=== PATIENT | male | born 1965 | race Caucasian/White ===

== ENCOUNTER 2017-12-30 03:50 | Observation (INO) | payer OTHER, BC ==
[2017-12-30] MEDS ORDERED: Acetaminophen 650 MG Supp RECTAL ONE (04:12)
[2017-12-30] MEDS ORDERED: HYDROmorphone 0.5 MG/0.5 ML Syringe IVPUSH ONE (04:13)
[2017-12-30] MEDS ORDERED: Ondansetron 4 MG/2 ML SDV IVPUSH ONE (04:13)
[2017-12-30] MEDS ORDERED: Sodium Chloride 0.9% 1,000 ML IV SCH ×3 (04:15→10:00)
--- NOTE | 2017-12-30 05:01 | EDM.PDOC ---
ED HPI GENERAL MEDICAL PROBLEM - General Chief Complaint: Abdominal Pain Stated Complaint: ABD PAIN Time Seen by Provider: 12/30/17 04:00 Source of Information: Reports: Patient History Limitations: Reports: No Limitations - History of Present Illness INITIAL COMMENTS - FREE TEXT/NARRATIVE: pt arrived with severe rt sided abdomanal pain. This started about 5 pm and has gotten worse. He is very nauseated. Onset: Today Duration: Hour(s): Location: Reports: Abdomen Quality: Reports: Sharp, Stabbing Associated Symptoms: Reports: No Other Symptoms, Nausea/Vomiting Right Lower Abdominal Pain Score (Numeric/FACES): 8 - Related Data Allergies Allergy/AdvReac Type Severity Reaction Status Date / Time No Known Allergies Allergy Verified 11/15/14 13:29 Home Meds: Home Meds Naproxen Sodium [Aleve] 220 mg PO BID 12/30/17 [History] Past Medical History - Infectious Disease History Infectious Disease History: Reports: Chicken Pox - Past Surgical History Musculoskeletal Surgical History: Reports: Joint Replacement, Knee Replacement, Shoulder Surgery Social & Family History - Tobacco Use Smoking Status *Q: Never Smoker - Caffeine Use Caffeine Use: Reports: Tea - Recreational Drug Use Recreational Drug Use: No ED ROS GENERAL - Review of Systems Review Of Systems: See Below Constitutional: Reports: Fever, Chills, Malaise HEENT: Reports: No Symptoms Respiratory: Reports: No Symptoms Cardiovascular: Reports: No Symptoms Endocrine: Reports: No Symptoms GI/Abdominal: Reports: Abdominal Pain, Nausea : Reports: No Symptoms Musculoskeletal: Reports: No Symptoms Skin: Reports: No Symptoms Neurological: Reports: No Symptoms ED EXAM, GI/ABD - Physical Exam Exam: See Below Text/Narrative:: pt looks very flushed and feels very hyper. Exam Limited By: No Limitations General Appearance: Alert, Anxious, Other (pt feels agitated. pupils are reactive and equal. ) Ears: Normal TMs Nose: Normal Inspection Throat/Mouth: Normal Inspection Head: Atraumatic Neck: Normal Inspection Respiratory/Chest: No Respiratory Distress Cardiovascular: Regular Rate, Rhythm, Tachycardia GI/Abdominal Exam: Soft, Non-Tender (Male) Exam: Deferred Rectal (Males) Exam: Deferred Back Exam: Normal Inspection Extremities: Normal Inspection Neurological: Alert, Oriented, Normal Cognition Psychiatric: Anxious Course - Vital Signs Last Recorded V/S: Last Vital Signs Temp 38.3 C H 12/30/17 06:01 Pulse 90 12/30/17 06:01 Resp 16 12/30/17 06:01 BP 143/87 H 12/30/17 06:01 Pulse Ox 96 12/30/17 06:01 - Orders/Labs/Meds Orders: Active Orders 24 hr Category Date Time Status Abdomen Pelvis w Cont [CT] Stat Exams 12/30/17 04:58 Taken UA W/MICROSCOPIC [URIN] Urgent Lab 12/30/17 06:01 Ordered Iopamidol [Isovue-300 (61%)] Med 12/30/17 05:22 Active 128 ml IV . DIRECTED PRN Sodium Chloride 0.9% [Normal Saline] 1,000 ml Med 12/30/17 04:15 Active IV ASDIRECTED Sodium Chloride 0.9% [Normal Saline] 80 ml Med 12/30/17 05:30 Active IV ASDIRECTED Medication Orders Sodium Chloride (Normal Saline) 1,000 mls @ 999 mls/hr IV ASDIRECTED [facility] Last Admin: 12/30/17 04:32 Dose: 999 mls/hr Sodium Chloride (Normal Saline) 80 mls @ 3.5 mls/sec IV ASDIRECTED [facility] Last Admin: 12/30/17 05:36 Dose: 3.5 mls/sec Iopamidol (Isovue-300 (61%)) 128 ml IV . DIRECTED PRN PRN Reason: RADIOLOGY EXAM Stop: 12/31/17 05:23 Last Admin: 12/30/17 05:36 Dose: 128 ml Labs: Laboratory Tests 12/30/17 12/30/17 12/30/17 Range/Units 04:11 04:11 04:12 WBC 9.5 (4.5-11.0) K/uL RBC 4.80 (4.30-5.90) M/uL Hgb 15.6 H (12.0-15.0) g/dL Hct 41.6 (40.0-54.0) % MCV 87 (80-98) fL MCH 33 H (27-31) pg MCHC 38 H (32-36) % Plt Count 135 L (150-400) K/uL Neut % (Auto) 87 H (36-66) % Lymph % (Auto) 6 L (24-44) % [place] % (Auto) 6 (2-6) % Eos % (Auto) 1 L (2-4) % Baso % (Auto) 0 (0-1) % Sodium 139 L (140-148) mmol/L Potassium 4.0 (3.6-5.2) mmol/L Chloride 102 (100-108) mmol/L Carbon Dioxide 25 (21-32) mmol/L Anion Gap 16.0 H (5.0-14.0) mmol/L BUN 18 (7-18) mg/dL Creatinine 1.3 (0.8-1.3) mg/dL Est Cr Clr Drug Dosing 71.30 mL/min Estimated GFR (MDRD) 58 L (>60) Glucose 133 H (74-106) mg/dL Calcium 9.3 (8.5-10.1) mg/dL Total Bilirubin 0.9 (0.2-1.0) mg/dL AST 52 H (15-37) U/L ALT 62 (12-78) U/L Alkaline Phosphatase 99 (46-116) U/L C-Reactive Protein 0.65 H (0.0-0.3) mg/dL Total Protein 7.3 (6.4-8.2) g/dL Albumin 4.4 (3.4-5.0) g/dL Globulin 2.9 (2.3-3.5) g/dL Albumin/Globulin Ratio 1.5 (1.2-2.2) Urine Color Urine Appearance Urine pH (4.5-8.0) Ur Specific [place] (1.008-1.030) Urine Protein (NEGATIVE) mg/dL Urine Glucose (UA) (NEGATIVE) mg/dL Urine Ketones (NEGATIVE) mg/dL Urine Occult Blood (NEGATIVE) Urine Nitrite (NEGAITVE) Urine Bilirubin (NEGATIVE) Urine Urobilinogen (NORMAL) mg/dL Ur Leukocyte Esterase (NEGATIVE) Urine RBC (0-5) Urine WBC (0-5) Ur Epithelial Cells Amorphous Sediment Urine Bacteria Urine Mucus 12/30/17 Range/Units 06:01 WBC (4.5-11.0) K/uL RBC (4.30-5.90) M/uL Hgb (12.0-15.0) g/dL Hct (40.0-54.0) % MCV (80-98) fL MCH (27-31) pg MCHC (32-36) % Plt Count (150-400) K/uL Neut % (Auto) (36-66) % Lymph % (Auto) (24-44) % [place] % (Auto) (2-6) % Eos % (Auto) (2-4) % Baso % (Auto) (0-1) % Sodium (140-148) mmol/L Potassium (3.6-5.2) mmol/L Chloride (100-108) mmol/L Carbon Dioxide (21-32) mmol/L Anion Gap (5.0-14.0) mmol/L BUN (7-18) mg/dL Creatinine (0.8-1.3) mg/dL Est Cr Clr Drug Dosing mL/min Estimated GFR (MDRD) (>60) Glucose (74-106) mg/dL Calcium (8.5-10.1) mg/dL Total Bilirubin (0.2-1.0) mg/dL AST (15-37) U/L ALT (12-78) U/L Alkaline Phosphatase (46-116) U/L C-Reactive Protein (0.0-0.3) mg/dL Total Protein (6.4-8.2) g/dL Albumin (3.4-5.0) g/dL Globulin (2.3-3.5) g/dL Albumin/Globulin Ratio (1.2-2.2) Urine Color Yellow Urine Appearance Clear Urine pH 7.0 (4.5-8.0) Ur Specific [place] 1.010 (1.008-1.030) Urine Protein Negative (NEGATIVE) mg/dL Urine Glucose (UA) Normal (NEGATIVE) mg/dL Urine Ketones 15 H (NEGATIVE) mg/dL Urine Occult Blood Negative (NEGATIVE) Urine Nitrite Negative (NEGAITVE) Urine Bilirubin Negative (NEGATIVE) Urine Urobilinogen Normal (NORMAL) mg/dL Ur Leukocyte Esterase Negative (NEGATIVE) Urine RBC 0-5 (0-5) Urine WBC 0-5 (0-5) Ur Epithelial Cells Few Amorphous Sediment Not seen Urine Bacteria Few Urine Mucus Not seen Meds: Medications Generic Name Dose Route Start Last Admin Trade Name Freq PRN Reason Stop Dose Admin Sodium Chloride 1,000 mls @ 999 mls/hr 12/30/17 04:15 12/30/17 04:32 Normal Saline IV 999 mls/hr ASDIRECTED BRODY Administration Sodium Chloride 80 mls @ 3.5 mls/sec 12/30/17 05:30 12/30/17 05:36 Normal Saline IV 3.5 mls/sec ASDIRECTED BRODY Administration Iopamidol 128 ml 12/30/17 05:22 12/30/17 05:36 Isovue-300 (61%) IV 12/31/17 05:23 128 ml . DIRECTED PRN Administration RADIOLOGY EXAM Discontinued Medications Generic Name Dose Route Start Last Admin Trade Name Jimmy PRN Reason Stop Dose Admin Acetaminophen 650 mg 12/30/17 04:12 12/30/17 06:02 Tylenol RECTAL 12/30/17 04:13 Not Given NOW ONE Hydromorphone HCl 0.5 mg 12/30/17 04:13 12/30/17 04:30 Dilaudid IVPUSH 12/30/17 04:14 0.5 mg ONETIME ONE Administration Hydromorphone HCl 1 mg 12/30/17 05:54 12/30/17 05:59 Dilaudid IVPUSH 12/30/17 05:55 1 mg ONETIME ONE Administration Ondansetron HCl 4 mg 12/30/17 04:13 12/30/17 04:32 Zofran IVPUSH 12/30/17 04:14 4 mg ONETIME ONE Administration - Re-Assessments/Exams Free Text/Narrative Re-Assessment/Exam: 12/30/17 05:34 pt was found to have rt lower abdomanal pain. He became ill at 5 pm today. His abdomanal pain has gotten progressively worse. A cat scan of the abdoman was gotten which showed a acute appendicitis. 06:42 Departure - Departure Time of Disposition: 05:35 Disposition: Admitted As Inpatient 64 Condition: Fair Clinical Impression: Appendicitis - Discharge Information Referrals: PCP,None [Primary Care Provider] - Forms: ED Department Discharge Care Plan Goals: admit to Dr Wu - My Orders Last 24 Hours: My Active Orders 12/30/17 04:15 Sodium Chloride 0.9% [Normal Saline] 1,000 ml IV ASDIRECTED 12/30/17 04:58 Abdomen Pelvis w Cont [CT] Stat 12/30/17 05:22 Iopamidol [Isovue-300 (61%)] 128 ml IV . DIRECTED PRN 12/30/17 05:30 Sodium Chloride 0.9% [Normal Saline] 80 ml IV ASDIRECTED 12/30/17 06:01 UA W/MICROSCOPIC [URIN] Urgent - Assessment/Plan Last 24 Hours: My Active Orders 12/30/17 04:15 Sodium Chloride 0.9% [Normal Saline] 1,000 ml IV ASDIRECTED 12/30/17 04:58 Abdomen Pelvis w Cont [CT] Stat 12/30/17 05:22 Iopamidol [Isovue-300 (61%)] 128 ml IV . DIRECTED PRN 12/30/17 05:30 Sodium Chloride 0.9% [Normal Saline] 80 ml IV ASDIRECTED 12/30/17 06:01 UA W/MICROSCOPIC [URIN] Urgent
[2017-12-30] MEDS ORDERED: Iopamidol 612 MG/ML 150 ML Bottle IV PRN (05:22)
[2017-12-30] MEDS ORDERED: Sodium Chloride 0.9% 80 ML IV SCH (05:30)
[2017-12-30] MEDS ORDERED: HYDROmorphone 1 MG/ML Syringe IVPUSH ONE (05:54)
[2017-12-30] MEDS ORDERED: Bupivacaine 0.5%/EPINEPHrine 1:200,000 50 ML MDV ONE (08:24)
[2017-12-30] MEDS ORDERED: Ondansetron 4 MG/2 ML SDV IVPUSH PRN (08:35)
[2017-12-30] MEDS ORDERED: Rocuronium 50 MG/5 ML Vial ONE (08:36)
[2017-12-30] MEDS ORDERED: Succinylcholine 200 MG/10 ML MDV ONE (08:36)
[2017-12-30] MEDS ORDERED: Ondansetron 4 MG/2 ML SDV ONE (08:36)
[2017-12-30] MEDS ORDERED: Propofol 200 MG/20 ML SDV ONE (08:36)
[2017-12-30] MEDS ORDERED: Neostigmine Methylsulfate 1 MG/ML 5 ML Syringe ONE (08:36)
[2017-12-30] MEDS ORDERED: Glycopyrrolate 0.2 MG/ML 5 ML MDV ONE (08:36)
[2017-12-30] MEDS ORDERED: Dexamethasone 4 MG/ML SDV ONE (08:36)
[2017-12-30] MEDS ORDERED: Scopolamine 1.5 MG Transdermal Patch TOP PRN (08:37)
[2017-12-30] MEDS ORDERED: fentaNYL 250 MCG/5 ML SDV ONE ×2 (08:37→09:07)
[2017-12-30] MEDS ORDERED: Promethazine 25 MG/ML SDV IV PRN (08:38)
[2017-12-30] MEDS ORDERED: diphenhydrAMINE 50 MG/ML SDV IVPUSH PRN (08:39)
[2017-12-30] MEDS ORDERED: diphenhydrAMINE 25 MG Cap PO PRN (08:39)
[2017-12-30] MEDS ORDERED: Morphine 4 MG/ML Syringe IVPUSH PRN (08:40)
[2017-12-30] MEDS ORDERED: Nicotine 14 MG/24 Hr Patch TRDERM PRN (08:40)
[2017-12-30] MEDS ORDERED: fentaNYL 100 MCG/2 ML SDV IVPUSH PRN (08:41)
[2017-12-30] MEDS ORDERED: Glucagon,Human Recombinant 1 MG Vial IM PRN (08:45)
[2017-12-30] MEDS ORDERED: Insulin Aspart 100 Units/ML 3 ML Pen SUBCUT PRN (08:45)
[2017-12-30] MEDS ORDERED: Glucose Gel 15 GM in 37.5 GM Tube PO PRN (08:45)
[2017-12-30] MEDS ORDERED: 50% Dextrose in Water 50 ML Syringe IVPUSH PRN (08:45)
[2017-12-30] MEDS ORDERED: Piperacillin/Tazobactam/Dext 4.5 GM in Premix Bag 1 BAG IV ONE (09:00)
[2017-12-30] MEDS ORDERED: Lactated Ringers 1,000 ML ONE (09:30)
[2017-12-30] MEDS ORDERED: Zolpidem 5 MG Tab PO PRN (09:49)
[2017-12-30] MEDS ORDERED: Benzocaine/Cetylpyridinium/Menthol Lozenge MUCMEM PRN (09:49)
[2017-12-30] MEDS ORDERED: Docusate Sodium 100 MG Cap PO PRN (09:49)
[2017-12-30] MEDS ORDERED: Bisacodyl 5 MG Tab PO PRN (09:49)
[2017-12-30] MEDS ORDERED: hydrOXYzine HCl 100 MG/2 ML SDV IM PRN (09:49)
--- NOTE | 2017-12-30 10:43 | CONS ---
DATE OF SERVICE: 12/30/2017 REFERRING PHYSICIAN: CONSULTING PHYSICIAN: Jitendra Wu MD REASON FOR CONSULTATION: Evaluation of abdominal pain. HISTORY OF PRESENT ILLNESS: A pleasant 52-year-old male who was seen in the emergency room with right lower quadrant abdominal pain. This has been present since approximately 5 p.m. yesterday. This pain is stabbing, constant, right lower 8/10. Modified by obesity. PAST MEDICAL HISTORY: Multiple orthotic procedures. PAST SURGICAL HISTORY: Knee, foot, and shoulder surgery and inguinal hernia repair. SOCIAL HISTORY: He does not smoke. FAMILY HISTORY: Noncontributory. REVIEW OF SYSTEMS: GENERAL: Appropriate for condition. CONSTITUTIONAL: Chills. HEENT: No symptoms. RESPIRATORY: No shortness of breath. CARDIOVASCULAR: No history of myocardial infarction. ENDOCRINE: No symptoms. GASTROINTESTINAL: As above and below. GENITOURINARY: No dysuria. MUSCULOSKELETAL: No symptoms but orthopedic issues noted. SKIN: No changes. NEUROLOGICAL: No symptoms. The remainder of review of systems is reviewed and is negative. PHYSICAL EXAMINATION: VITAL SIGNS: Temperature 101.3, blood pressure 149/68, pulse 93, respirations 20, and 96% on room air. GENERAL: The patient is resting fairly comfortable. HEENT: Pupils are equal. NECK: Supple. LUNGS: Clear. CARDIOVASCULAR: Regular rhythm and rate. RESPIRATORY: Lungs are clear to auscultation bilaterally. ABDOMEN: Bowel sounds are positive. Pain with palpation of right lower quadrant. Minimal guarding. Minimal rebound. EXTREMITIES: Full range of motion. Strength 5/5. NEUROLOGICAL: Oriented x3. PSYCHIATRIC: No gross depression. LABORATORY RESULTS: Also show a normal white blood cell count and creatinine of 1.3. IMAGING: I did review the CT scan which shows appendicitis. ASSESSMENT AND PLAN: To the operating room for laparoscopic appendectomy. Plan: We discussed risks, benefits, alternatives, and limitations including but not limited to infection, bleeding, and perforation. The patient understands these risks and wishes to proceed. Jitendra Wu MD /[id number]
[2017-12-30] MEDS: Acetaminophen/HYDROcodone 325-5 MG Tab PO PRN ×3 (11:42→20:39)
[2017-12-30] MEDS: Piperacillin/Tazobactam/Dext 4.5 GM in Premix Bag 1 BAG IV SCH ×2 (15:20→23:16)
[2017-12-31] MEDS: Acetaminophen/HYDROcodone 325-5 MG Tab PO PRN ×3 (00:42→08:41)
[2017-12-31] MEDS: Piperacillin/Tazobactam/Dext 4.5 GM in Premix Bag 1 BAG IV SCH (07:09)
[2017-12-31 09:01] VITALS: BP 120/70
--- NOTE | 2017-12-31 10:08 | DISCH ---
DISCHARGE DIAGNOSIS: Status post laparoscopic appendectomy. SUMMARY OF HOSPITAL COURSE: This is a pleasant 52-year-old male, who was admitted with right lower quadrant abdominal pain, who underwent uneventful laparoscopic appendectomy and was found to have appendicitis, which was non-ruptured and no evidence of abscess. This was transected and thoroughly irrigated. The patient received 24 hours of antibiotics. On the day of discharge, the patient was passing gas. He had no nausea, vomiting, shortness of breath, or chest pain. He is afebrile. His white blood cell count was normal. He will be discharged home. FOLLOWUP: The patient is not a resident here, but has a cabin. He is instructed to follow up with myself or his primary care provider in his hometown in 7-10 days. ACTIVITY: No lifting greater than 30 pounds x30 days. DISCHARGE MEDICATIONS: Please see MAR, but include [place] for pain. No antibiotics.
--- NOTE | 2017-12-31 10:17 | PN ---
DATE OF SERVICE: 12/31/2017 SUBJECTIVE: The patient is doing well today. Pain is well controlled. No nausea, vomiting, shortness of breath, fevers, or chills. He is passing gas. OBJECTIVE: VITAL SIGNS: Stable, temperature 97.5, blood pressure 120/76, pulse 49, respirations 16, and saturation 94% on room air. CARDIOVASCULAR: Regular rate. RESPIRATORY: Lungs are clear to auscultation bilaterally. SKIN: Incisions are healing well. LABORATORY DATA: Show a normal white blood cell count and a normal basic metabolic panel. ASSESSMENT: Status post laparoscopic appendectomy. PLAN: The patient will be discharged today. Please see discharge instructions for further details. Jitendra Wu MD /[id number]
--- NOTE | 2018-01-01 07:33 | OR ---
DATE OF PROCEDURE: 12/30/2017 PROCEDURE: Laparoscopic appendectomy. FINDINGS: Appendicitis, nonruptured. COMPLICATIONS: None. REGIONAL EDUCATION MANAGER: None. ANESTHESIA: General/local. RISKS: Risks, benefits, alternatives, and limitations including, but not limited to infection, bleeding, and injury to abdominal structures such as bowel, bladder or blood vessels were explained to the patient who wished to proceed. PROCEDURE IN DETAIL: The patient was placed in the supine position. A Veress needle was used to enter the abdomen without abnormality and a drop test was performed without abnormality. An Optiview trocar was then followed, no evidence of enterotomy or injury was noted during this process. Once the Optiview trocar was introduced, two 5 mm ports were also entered under direct visualization. The appendix was readily identified and was found to be consistent with appendicitis, however, there was no evidence of perforation or abscess. A quezada load stapler was used to transect it. Of note, the proximal 1 cm of the appendix was noted to be transected at a slight angle, therefore, this was revised with secondary quezada stapler. This was inspected for bleeding. The abdomen was irrigated with greater than 1 L of irrigation. The patient was moved on the table to remove the fluid around and ensure maximum removal of the fluid. This included right upper quadrant, pelvis, and right lower quadrant among other areas. The air was removed. The wounds were irrigated and closed with 3-0 Vicryl and 4-0 Vicryl and Dermabond was applied. The patient tolerated the procedure well. Jitendra Wu MD /[id number]
== END 2017-12-31 10:45 | disposition home or self-care (01) ==
LOC: JP.ED 03:50 → JP.SDS 08:41 → JP.MS 09:49
PROVIDERS: ADMIT Surgery; ATTEND Surgery
DX: K35.3 Acute appendicitis with localized peritonitis (principal)
CPT/HCPCS: 36415; 44970; 74177; 80048; 80053; 81001; 85025; 85027; 86140; 96361; 96365; 96375; 96376; 99285; A9270; G0378; J0330; J1100; J1170; J2405; J2543; J2704; J2710; J3010; J3490; J7030; J7120; 88304

== ENCOUNTER 2024-12-06 12:42 | Emergency (ER) | payer OTHER ==
[2024-12-06 13:22] LABS: BASOPHILS PERCENT AUTO 0.2 % (0.1-1.3); EOSINOPHILS ABSOLUTE AUTO 0.32 K/uL (0.00-0.40); EOSINOPHILS PERCENT AUTO 3.1 % (0.0-5.4); HEMATOCRIT 37.6 % (38.4-49.7); HEMOGLOBIN 12.3 g/dL (12.9-16.9); IMMATURE GRAN ABSOLUTE AUTO 0.03 K/uL (0.00-0.23); IMMATURE GRAN PERCENT AUTO 0.3 % (0.0-0.7); LYMPHOCYTES ABSOLUTE AUTO 0.58 K/uL (0.8-3.3); LYMPHOCYTES PERCENT AUTO 5.6 % (11.4-47.7); MEAN CORPUSCULAR HEMOGLOBIN 30.1 pg (31.6-35.5); MEAN CORPUSCULAR HGB CONC 32.7 g/dL (31.6-35.5); MEAN CORPUSCULAR VOLUME 92.2 fL (81.4-99.0); MONOCYTES ABSOLUTE AUTO 0.48 K/uL (0.20-0.90); MONOCYTES PERCENT AUTO 4.6 % (3.3-12.6); NEUTROPHILS ABSOLUTE AUTO 8.95 K/uL (1.0-7.6); NEUTROPHILS PERCENT AUTO 86.2 % (40.0-78.1); PLATELET COUNT,PLT 198 K/uL (130-375); RED BLOOD CELL COUNT 4.08 M/uL (4.14-5.76); WHITE BLOOD CELL COUNT,WBC 10.4 K/uL (3.2-11.0)
[2024-12-06 13:29] LABS: BASOPHILS ABSOLUTE AUTO 0.02 K/uL (0.00-0.10)
[2024-12-06] MEDS: Sodium Chloride 0.9% 1,000 ML IV ONE ×3 (13:35→15:45)
[2024-12-06] MEDS: Cefepime 2 GM in Sodium Chloride 0.9% 50 ML IV ONE (13:35)
[2024-12-06 13:37] LABS: ALANINE AMINOTRANSFERASE,ALT 34 U/L (12-78); ALBUMIN 3.9 g/dL (3.4-5.0); ALKALINE PHOSPHATASE 137 U/L (46-116); ASPARTATE AMNIOTRANSFERASE,AST 15 U/L (15-37); BILIRUBIN TOTAL 0.7 mg/dL (0.2-1.0); BLOOD UREA NITROGEN,BUN 12 mg/dL (7-18); CALCIUM 9.9 mg/dL (8.5-10.1); CARBON DIOXIDE,CO2 28 mmol/L (21-32); CHLORIDE,CL 100 mmol/L (100-108); EST CRCL DRUG DOSING (CG) 85.59 mL/min; ESTIMATED GFR 86 mL/min (>60); GLUCOSE RANDOM 95 mg/dL (74-106); POTASSIUM,K 3.8 mmol/L (3.6-5.2); PROTEIN TOTAL,TP 7.8 g/dL (6.4-8.2); SODIUM,NA 139 mmol/L (140-148)
[2024-12-06 13:52] LABS: ANION GAP 14.8 mmol/L (5.0-14.0)
[2024-12-06] MEDS: metroNIDAZOLE/Normal Saline 500 MG in Premix Bag 1 BAG IV ONE (14:16)
[2024-12-06] MEDS: Acetaminophen 500 MG Tab PO ONE (14:39)
[2024-12-06] MEDS: VANCOmycin 2 GM in Sodium Chloride 0.9% 500 ML IV ONE (15:28)
[2024-12-06] MEDS: Sodium Chloride 0.9% 1,000 ML IV SCH (18:55)
[2024-12-06] MEDS: Ketorolac 15 MG/ML SDV IVPUSH ONE (19:12)
[2024-12-06 19:30] VITALS: BP 124/61; PULSE 85
== END 2024-12-06 20:26 | disposition other institution (70) ==
LOC: JP.ED 12:42
DX: T81.41XA Infection following a procedure, superficial incisional surgical site, initial encounter (principal); E03.9 Hypothyroidism, unspecified; Z91.048 Other nonmedicinal substance allergy status; Z79.899 Other long term (current) drug therapy; Z79.01 Long term (current) use of anticoagulants
CPT/HCPCS: 36415; 73700; 76377; 80053; 83605; 85025; 87040; 87070; 87077; 87205; 96361; 96365; 96366; 96367; 96375; 99285; A9270; J0692; J1836; J1885; J3370; J7030; J7040